=== PATIENT | female | born 1985 | race African-American/Black ===

== ENCOUNTER 2016-06-19 09:25 | Emergency (ER) | payer BC, MEDICAID ==
[2016-06-19] MEDS ORDERED: NAPROXEN 250 MG TABLET PO STA (12:03)
[2016-06-19] MEDS ORDERED: HYDROcod/ACETAM 5/325 MG TABLET PO STA (12:03)
[2016-06-19] MEDS ORDERED: NAPROXEN 250 MG TABLET PO ONE (12:08)
[2016-06-19] MEDS ORDERED: HYDROcod/ACETAM 5/325 MG TABLET ONE (12:08)
== END 2016-06-19 13:18 | disposition home or self-care (01) ==
DX: R07.89 Other chest pain (principal); R51 Headache; I10 Essential (primary) hypertension; F17.200 Nicotine dependence, unspecified, uncomplicated; Z79.3 Long term (current) use of hormonal contraceptives
CPT/HCPCS: 71020; 93005; 93010; 99282; 99284; A9270

== ENCOUNTER 2016-12-03 18:51 | Emergency (ER) | payer BC, MEDICAID ==
[2016-12-03] MEDS ORDERED: DEXAMETHASONE 10 MG/ML VIAL PO STA (20:48)
[2016-12-03] MEDS ORDERED: IPRATROPIUM/ALBUTEROL 3 ML NEB INH STA (20:48)
--- NOTE | 2016-12-03 20:54 | ED Physician Documentation ---
PD HPI DYSPNEA - Stated complaint Stated Complaint: SOA - Chief complaint Chief Complaint: Resp - History obtained from History obtained from: Patient, Family - History of Present Illness Timing - onset: How many days ago (3) Timing - onset during: Rest Timing - duration: Days (3) Timing - details: Gradual onset, Still present Inciting event(s): URI Improved by: Inhaler/neb Worsened by: Exertion, Coughing, Allergens Associated symptoms: Fever, Cough, Wheezing, Chest pain / discomfort Similar symptoms before: Diagnosis (asthma) Recently seen: Not recently seen - Additional information Additional information: 31-year-old female with history of asthma and hypertension has developed wheezing over the past 3 days. She has had a cough with a low-grade fever and is producing some sputum. She does not have headache sore throat or ear pain. She usually takes some labetalol for her blood pressure and she has not been on this for some time. She is noncompliant because she feels the medicine makes her feel tired. She has not followed up with her primary care doctor about alternative agents. She indicates that she does not have a primary care doctor now. She does have labetalol at home. Review of Systems Constitutional: reports: Fever Eyes: denies: Decreased vision Ears: denies: Ear pain Nose: reports: Congestion. denies: Rhinorrhea / runny nose Throat: denies: Sore throat Cardiac: reports: Chest pain / pressure. 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 - Present Medications Home Medications: Ambulatory Orders Medication Instructions Recorded Confirmed Albuterol Sulf [Ventolin Hfa 1 - 2 puffs INH Q4HR PRN #1 inhaler 12/03/16 Inhaler] Albuterol Sulfate [Proair Hfa 12/03/16 Inhaler] Azithromycin [Zithromax] 250 mg PO DAILY #6 tablet 12/03/16 - Allergies Allergies/Adverse Reactions: Allergies Allergy/AdvReac Type Severity Reaction Status Date / Time aspirin Allergy Severe Respiratory Verified 12/03/16 19:12 ibuprofen Allergy Severe Respiratory Verified 12/03/16 19:12 latex Allergy Intermediate Rash Verified 12/03/16 19:12 - Social History Does the pt smoke?: Yes Smoking Status: Current every day smoker Does the pt drink ETOH?: Yes Does the pt have substance abuse?: No - Immunizations Immunizations are current?: Yes - POLST Patient has POLST: No PD ED PE NORMAL - Vitals Vital signs reviewed: Yes (Hypertensive) - General General: Alert and oriented X 3, No acute distress, Well developed/nourished - HEENT HEENT: Atraumatic, PERRL, EOMI, Pharynx benign, Other (Minimal erythema along the umbo on the left side only.) - Neck Neck: Supple, no meningeal sign, No bony TTP - Cardiac Cardiac: RRR, No murmur - Respiratory Respiratory: No respiratory distress, Other (Wheezes and rhonchi scattered.) - Abdomen Abdomen: Soft, Non tender - Back Back: No CVA TTP, No spinal TTP - Derm Derm: Normal color, Warm and dry, No rash - Extremities Extremities: No deformity, No edema - Neuro Neuro: Alert and oriented X 3, No motor deficit, No sensory deficit, Normal speech - Psych Psych: Normal mood, Normal affect Results - Vitals Vitals: Vital Signs - 24 hr 12/03/16 12/03/16 12/03/16 18:57 19:15 20:55 Temperature 37.2 C 98.9 C H Heart Rate 90 87 84 Respiratory 22 18 18 Rate Blood Pressure 178/119 H 176/117 H O2 Saturation 98 93 12/03/16 22:02 Temperature Heart Rate 85 Respiratory 18 Rate Blood Pressure 165/102 H O2 Saturation 96 Oxygen O2 Source Nasal cannula - Rads (name of study) 2 view chest Radiology: Prelim report reviewed (Impression: Normal two-view chest radiography.), EMP read indepedently, See rad report Departure - Departure Disposition: 01 Home, Self Care Clinical Impression: Exacerbation of asthma Otitis media Qualifiers: Otitis media type: suppurative Chronicity: acute Laterality: left Recurrence: not specified as recurrent Spontaneous tympanic membrane rupture: without spontaneous rupture Qualified Code(s): H66.002 - Acute suppurative otitis media without spontaneous rupture of ear drum, left ear Hypertension Qualifiers: Hypertension type: essential hypertension Qualified Code(s): I10 - Essential ( primary) hypertension Condition: Stable Instructions: ED Otitis Media Acute Adult, ED Bronchitis Asthmatic, ED HTN Established Follow-Up: [facility] [Provider Group] [facility] [Provider Group] Prescriptions: Albuterol Sulf [Ventolin Hfa Inhaler] 1 - 2 puffs INH Q4HR PRN #1 inhaler PRN Reason: Shortness Of Air/Wheezing Azithromycin [Zithromax] 250 mg PO DAILY #6 tablet Comments: Today in the emergency department department your blood pressure was out of control. Take your medication as previously prescribed and follow-up with 1 of the providers suggested for continued care of your hypertension. An alternative agent may be more tolerable. Discharge Date/Time: 12/03/16 22:04
[2016-12-03] MEDS ORDERED: DEXAMETHASONE 10 MG/ML VIAL ONE (20:55)
[2016-12-03] MEDS ORDERED: IPRATROPIUM/ALBUTEROL 3 ML NEB INH ONE (20:59)
--- NOTE | 2016-12-03 21:23 | XRAY Preliminary Report ---
Exam: XR Chest 2 View PA/LAT IMPRESSION: Normal 2-view chest radiography. [facility] SITE ID: [id number]
--- NOTE | 2016-12-03 21:26 | XRAY Report ---
EXAM: CHEST RADIOGRAPHY EXAM DATE: 12/03/2016 09:19 PM. CLINICAL HISTORY: Nonproductive cough, chest tightness, and shortness of breath. COMPARISON: 06/19/2016 and 06/17/2014. TECHNIQUE: 2 views. FINDINGS: Lungs/Pleura: Normal volumes. No focal opacities are evident. No pleural effusion or pneumothorax. Mediastinum: Normal cardiomediastinal contour. Other: The bones are normal. IMPRESSION: Normal 2-view chest radiography. [facility] Referring Provider Line: [phone] SITE ID: [id number]
[2016-12-03 22:04] VITALS: BP 165/102
== END 2016-12-03 22:04 | disposition home or self-care (01) ==
LOC: ED 18:51
DX: J45.901 Unspecified asthma with (acute) exacerbation (principal); H66.002 Acute suppurative otitis media without spontaneous rupture of ear drum, left ear; I10 Essential (primary) hypertension; T44.8X6A Underdosing of centrally-acting and adrenergic-neuron-blocking agents, initial encounter; Z91.128 Patient's intentional underdosing of medication regimen for other reason; F17.200 Nicotine dependence, unspecified, uncomplicated
CPT/HCPCS: 71020; 94640; 94664; 99283; J7620

== ENCOUNTER 2016-12-29 15:34 | Outpatient (CLI) | payer MEDICAID ==
[2016-12-29 14:11] LABS: CALCIUM 8.8 mg/dL (8.5-10.3); CREATININE 0.7 mg/dL (0.4-1.0); POTASSIUM 3.8 mmol/L (3.5-5.0)
== END 2016-12-29 15:35 | disposition home or self-care (01) ==
LOC: LAB.N 15:34
PROVIDERS: ATTEND Family Medicine
DX: I10 Essential (primary) hypertension (principal)
CPT/HCPCS: 36415; 80048; 80053

== ENCOUNTER 2018-10-04 07:12 | Outpatient (CLI) | payer BC, MEDICAID ==
--- NOTE | 2018-10-04 09:55 | Ultrasound Report ---
Reason: ABD PAIN, WORSE IN RLQ W/PALPATION Procedure Date: 10/04/2018 Accession Number: [id number] / [id number] Procedure: US - Abdomen Complete CPT Code: FULL RESULT: EXAM: ABDOMEN ULTRASOUND EXAM DATE: 10/04/2018 07:39 AM. CLINICAL HISTORY: Abdominal pain, worse in RLQ with palpation. COMPARISON: ABDOMEN/PELVIS W/O 10/05/2015 2:16 AM. TECHNIQUE: Real-time scanning was performed with static images obtained. FINDINGS: Liver: Normal in size and echotexture. Liver measures at least 18.2 cm. Main portal vein flow: Hepatopetal. Gallbladder: Normal. No stones, wall thickening, or sonographic Jalloh's sign. Biliary System: Common bile duct measures 4 mm. No intrahepatic or extrahepatic ductal dilatation. Pancreas: Visualized portion is unremarkable. Kidneys: Right: 12 cm longitudinally. Normal. No contour-deforming mass, stones, or hydronephrosis. Left: 13.5 cm longitudinally. Mild amount of hydronephrosis. No renal calculi, lobulations noted, variant of normal. Spleen: 12.6 cm. Normal in size and echotexture. Aorta and Inferior Vena Cava: Unremarkable. Other: None. IMPRESSION: Mild left hydronephrosis, etiology not identified. [facility]
== END 2018-10-04 07:13 | disposition home or self-care (01) ==
LOC: DI 07:12
PROVIDERS: ATTEND Physician Assistant Medical
DX: N13.30 Unspecified hydronephrosis (principal)
CPT/HCPCS: 76700

== ENCOUNTER 2020-02-19 16:08 | Emergency (ER) | payer BC, OTHER ==
[2020-02-19 16:25] VITALS: BP 166/104
--- NOTE | 2020-02-19 17:04 | XRAY Report ---
PROCEDURE: Chest 1 View X-Ray INDICATIONS: chest pain TECHNIQUE: One view of the chest was acquired. COMPARISON: Chest 2 views 12/03/2016 reviewed. FINDINGS: Surgical changes and devices: None. Lungs and pleura: No pleural effusions or pneumothorax. Lungs are clear. Mediastinum: Mediastinal contours appear normal. Heart size is normal. Bones and chest wall: No suspicious bony lesions. Overlying soft tissues appear unremarkable. IMPRESSION: Normal for age, source of current symptoms is not seen. Reviewed by: Galdino Riddle MD on 02/19/2020 5:03 PM PST Approved by: Galdino Riddle MD on 02/19/2020 5:03 PM PST Station ID: [id number]
[2020-02-19] MEDS ORDERED: MAG HYDROX/AL HYDROX/SIMETH 30 ML UDC PO STA (17:06)
[2020-02-19] MEDS ORDERED: SUCRALFATE 1 GM/10 ML UDC PO STA (17:06)
[2020-02-19] MEDS ORDERED: LIDOCAINE VISCOUS 2% 15 ML UDC MM STA (17:06)
[2020-02-19 17:22] LABS: BASOPHILS % (AUTO) 0.3 %; EOSINOPHILS # (AUTO) 0.2 10^3/uL (0.0-0.7); EOSINOPHILS % (AUTO) 2.4 %; HGB - HEMOGLOBIN 10.1 g/dL (12.0-16.0); LYMPHOCYTES # (AUTO) 2.6 10^3/uL (1.5-3.5); LYMPHOCYTES % (AUTO) 29.7 %; MEAN CORPUSCULAR HEMOGLOBIN 21.4 pg (27.0-31.0); MEAN CORPUSCULAR HGB CONC 30.9 g/dL (32.0-36.0); MEAN CORPUSCULAR VOLUME 69.3 fL (81.0-99.0); MEAN PLATELET VOLUME 9.3 fL (7.9-10.8); MONOCYTES # (AUTO) 0.7 10^3/uL (0.0-1.0); MONOCYTES % (AUTO) 7.8 %; NEUTROPHILS # (AUTO) 5.1 10^3/uL (1.5-6.6); NEUTROPHILS % (AUTO) 59.3 %; PLT - PLATELET COUNT 307 10^3/uL (130-450); RED BLOOD COUNT 4.72 10^6/uL (4.20-5.40); RED CELL DISTRIBUTION WIDTH 16.6 % (12.0-15.0); WHITE BLOOD COUNT 8.6 x10^3/uL (4.8-10.8)
[2020-02-19 17:34] LABS: ALBUMIN 4.1 g/dL (3.2-5.5); ALBUMIN/GLOBULIN RATIO 1.3 (1.0-2.2); BILIRUBIN,TOTAL 0.8 mg/dL (0.2-1.0); CALCIUM 8.8 mg/dL (8.5-10.3); CREATININE 0.6 mg/dL (0.4-1.0); TOTAL PROTEIN 7.3 g/dL (6.7-8.2)
--- NOTE | 2020-02-19 17:36 | ED Physician Documentation ---
PD HPI CHEST PAIN - Stated complaint Stated Complaint: DIFFICULTY SWALLOWING, CHEST DISCOMFORT - Chief complaint Chief Complaint: General - History obtained from History obtained from: Patient - History of Present Illness Timing - onset: Today Timing - onset during: Rest Timing - duration: Days (1) Timing - details: Gradual onset Pain level max: 5 Pain level now: 4 Quality: Indigestion Location: Substernal Radiation: No: Jaw, Neck, Back, Abdominal, Left upper extremity, Right upper extremity Improved by: Nothing Worsened by: Eating Associated symptoms: No: Shortness of air, Diaphoresis, Nausea, Vomiting, Feeling faint / dizzy, General Weakness, Palpitations, Cough - Additional information Additional information: 34-year-old female presents to the emergency department with chest pain today. She describes it as burning. It is substernal, nonradiating. Worse with eating and drinking. Nothing makes it better. Has not taken anything for this. Has not had similar complaints previously. Patient denies any possibility of . Review of Systems Ten Systems: 10 systems reviewed and negative Constitutional: denies: Fever, Chills Nose: denies: Rhinorrhea / runny nose, Congestion Throat: denies: Sore throat Cardiac: denies: Palpitations, Calf pain Respiratory: denies: Cough GI: reports: Abdominal Pain (Epigastric abdominal pain.). 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 02/19/20 Hydrochlorothiazide 0 mg DAILY 02/19/20 02/19/20 Labetalol [Trandate] 0 mg BID 02/19/20 02/19/20 Sucralfate [Carafate] 1 gm PO ACHS #60 tablet 02/19/20 - Allergies Allergies/Adverse Reactions: Allergies Allergy/AdvReac Type Severity Reaction Status Date / Time aspirin Allergy Severe Respiratory Verified 12/03/16 19:12 ibuprofen Allergy Severe Respiratory Verified 12/03/16 19:12 latex Allergy Intermediate Rash Verified 12/03/16 19:12 - Social History Does the pt smoke?: Yes Smoking Status: Current every day smoker Does the pt drink ETOH?: Yes Does the pt have substance abuse?: No - Immunizations Immunizations are current?: Yes - POLST Patient has POLST: No PD ED PE NORMAL - Vitals Vital signs reviewed: Yes - General General: Alert and oriented X 3, No acute distress - HEENT HEENT: Moist mucous membranes - Neck Neck: Supple, no meningeal sign - Cardiac Cardiac: RRR, No murmur, Strong equal pulses - Respiratory Respiratory: No respiratory distress, Clear bilaterally - Abdomen Abdomen: Soft, Non tender, Non distended - Back Back: No CVA TTP, No spinal TTP - Derm Derm: Warm and dry - Extremities Extremities: No edema - Neuro Neuro: Alert and oriented X 3 - Psych Psych: Normal mood, Normal affect Results - Vitals Vitals: Vital Signs - 24 hr 02/19/20 16:20 Temperature 36.7 C Heart Rate 87 Respiratory 16 Rate Blood Pressure 166/104 H O2 Saturation 100 Oxygen O2 Source Room air - EKG (time done) 1635 Rate: Rate (enter#) (79) Rhythm: NSR [place]: Normal Intervals: Normal VT QRS: Normal Ischemia: Normal ST segments - Labs Labs: Laboratory Tests 02/19/20 02/19/20 02/19/20 17:13 17:13 17:13 WBC 8.6 RBC 4.72 Hgb 10.1 L Hct 32.7 L MCV 69.3 L MCH 21.4 L MCHC 30.9 L RDW 16.6 H Plt Count 307 MPV 9.3 Neut # (Auto) 5.1 Lymph # (Auto) 2.6 [place] # (Auto) 0.7 Eos # (Auto) 0.2 Baso # (Auto) 0.0 Absolute Nucleated RBC 0.00 Nucleated RBC % 0.0 WBC Morphology NORMAL APPEARANCE Platelet Estimate NORMAL (130-450,000) Platelet Morphology NORMAL APPEARANCE RBC Morph Micro Appear 1+ HYPOCHROMASIA Sodium 137 Potassium 3.7 Chloride 103 Carbon Dioxide 26 Anion Gap 8.0 BUN 8 Creatinine 0.6 Estimated GFR (MDRD) 137 Glucose 86 Calcium 8.8 Total Bilirubin 0.8 AST 16 ALT 18 Alkaline Phosphatase 32 L Troponin I High Sens < 2.3 L Total Protein 7.3 Albumin 4.1 Globulin 3.2 Albumin/Globulin Ratio 1.3 Lipase 25 - Rads (name of study) Chest x-ray Radiology: Prelim report reviewed, EMP read contemporaneously, See rad report (No acute abnormality) PD MEDICAL DECISION MAKING - ED course Complexity details: reviewed results, re-evaluated patient, considered differential (No ST elevation [place], no aortic dissection, no PE, no tension pneumothorax, no aortic aneurysm), d/w patient ED course: 34-year-old female presents to the emergency department with chest pain today. Appears consistent with GERD. Symptoms resolved with GI cocktail. Negative troponin. No acute findings on EKG, chest x-ray. Patient is well-appearing, nontoxic. Afebrile. No evidence of PE. Patient counseled regarding signs and symptoms for which I believe and urgent re-evaluation would be necessary. Patient with good understanding of and agreement to plan and is comfortable going home at this time This document was made in part using voice recognition software. While efforts are made to proofread this document, sound alike and grammatical errors may occur. Departure - Departure Disposition: Home, Self Care Clinical Impression: Chest pain Qualifiers: Chest pain type: unspecified Qualified Code(s): R07.9 - Chest pain, unspecified GERD (gastroesophageal reflux disease) Qualifiers: Esophagitis presence: with esophagitis Esophagitis bleeding: without hemorrhage Qualified Code(s): K21.00 - Gastro-esophageal reflux disease with esophagitis, without bleeding Condition: Good Instructions: ED Chest Pain Atypical Unkn Cause, ED GERD Follow-Up: your,doctor in 1 week [Other] Prescriptions: Sucralfate [Carafate] 1 gm PO ACHS #60 tablet Esomeprazole Magnesium [Nexium] 20 mg PO DAILY #30 capsule. Comments: Follow-up with your doctor for further care. They may want to schedule you for an endoscopy to have a visual inspection of your esophagus and stomach. Use the medications as prescribed. Avoid fried foods, spicy foods, caffeine. Discharge Date/Time: 02/19/20 18:13
[2020-02-19 18:33] LABS: PLATELET ESTIMATE, MANUAL NORMAL (130-450,000) (NORMAL); PLATELET MORPHOLOGY NORMAL APPEARANCE (NORMAL)
== END 2020-02-19 18:13 | disposition home or self-care (01) ==
LOC: ED 16:08
DX: K21.00 Gastro-esophageal reflux disease with esophagitis, without bleeding (principal); R07.9 Chest pain, unspecified; F17.200 Nicotine dependence, unspecified, uncomplicated; I10 Essential (primary) hypertension
CPT/HCPCS: 71045; 80053; 83690; 84484; 85025; 93005; 99284; 99285; A9270; 36415

== ENCOUNTER 2020-09-11 06:52 | Emergency (ER) | payer OTHER, MEDICAID ==
[2020-09-11 07:04] VITALS: BP 149/94
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
== END 2020-09-11 08:52 | disposition home or self-care (01) ==
LOC: ED 06:52
DX: S39.012A Strain of muscle, fascia and tendon of lower back, initial encounter (principal); V49.9XXA Car occupant (driver) (passenger) injured in unspecified traffic accident, initial encounter; F17.200 Nicotine dependence, unspecified, uncomplicated; I10 Essential (primary) hypertension
CPT/HCPCS: 99283; 99284

== ENCOUNTER 2020-09-12 02:34 | Emergency (ER) | payer OTHER, MEDICAID ==
[2020-09-12 03:16] LABS: BASOPHILS % (AUTO) 0.3 %; EOSINOPHILS # (AUTO) 0.2 10^3/uL (0.0-0.7); EOSINOPHILS % (AUTO) 2.5 %; HCT - HEMATOCRIT 37.5 % (37.0-47.0); HGB - HEMOGLOBIN 11.4 g/dL (12.0-16.0); LYMPHOCYTES # (AUTO) 1.8 10^3/uL (1.5-3.5); LYMPHOCYTES % (AUTO) 19.5 %; MEAN CORPUSCULAR HEMOGLOBIN 21.9 pg (27.0-31.0); MEAN CORPUSCULAR HGB CONC 30.4 g/dL (32.0-36.0); MEAN PLATELET VOLUME 10.1 fL (7.9-10.8); MONOCYTES # (AUTO) 0.9 10^3/uL (0.0-1.0); MONOCYTES % (AUTO) 9.3 %; NEUTROPHILS # (AUTO) 6.3 10^3/uL (1.5-6.6); PLT - PLATELET COUNT 315 10^3/uL (130-450); RED BLOOD COUNT 5.21 10^6/uL (4.20-5.40); RED CELL DISTRIBUTION WIDTH 19.9 % (12.0-15.0); WHITE BLOOD COUNT 9.3 x10^3/uL (4.8-10.8)
--- NOTE | 2020-09-12 03:18 | ED Physician Documentation ---
PD HPI BACK PAIN - Stated complaint Stated Complaint: ABD PX - Chief complaint Chief Complaint: Back Pain - History obtained from History obtained from: Patient - History of Present Illness Timing - onset: How many days ago (2-3 days of left low back pain. Seen yesterday with imaging of spine without acute process. Sthritis noted. Now having pain into left side abd with feeling of fulness.) Timing - duration: Days (2-3) Timing - details: Gradual onset, Still present, Waxing and waning Location: Lower, Left Quality: Pain, Aching Associated symptoms: Other (nausea). No: Fever, Weakness, Numbness Worsened by: Movement Contributing factors: No: Lifting, Twisting Recently seen: Emergency Dept (yesterday in ER and Dx with muscular back pain. Had imiaging of spine with some arthritis Dx.) Review of Systems Constitutional: denies: Fever, Chills Nose: denies: Rhinorrhea / runny nose, Congestion Throat: denies: Sore throat Cardiac: denies: Chest pain / pressure Respiratory: denies: Dyspnea, Cough GI: reports: Abdominal Pain, Nausea, Constipation. 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 02/19/20 09/12/20 Labetalol [Trandate] 0 mg BID 02/19/20 09/12/20 Sucralfate [Carafate] 1 gm PO ACHS #60 tablet 02/19/20 09/12/20 hydroCHLOROthiazide 0 mg DAILY 02/19/20 09/12/20 [Hydrochlorothiazide] HYDROcod/ACETAM 5/325 [[place] 5/325] 1 - 2 ea PO Q6H PRN #14 tablet 09/11/20 09/12/20 methocarbamoL [Robaxin] 500 mg PO Q6H PRN #20 tablet 09/11/20 09/12/20 Naproxen Sodium [Naprelan] 375 mg PO BID PRN #20 tab 09/12/20 Sennosides/Docusate Sodium 1 each PO DAILY 30 Days #30 tablet 09/12/20 [Senna-Docusate Sodium Tablet] polyethylene glycoL 3350 [Miralax] 17 gm PO DAILY PRN #1 bottle 09/12/20 - Allergies Allergies/Adverse Reactions: Allergies Allergy/AdvReac Type Severity Reaction Status Date / Time aspirin Allergy Severe Respiratory Verified 09/12/20 02:42 ibuprofen Allergy Severe Respiratory Verified 09/12/20 02:42 latex Allergy Intermediate Rash Verified 09/12/20 02:42 - Social History Does the pt smoke?: Yes Smoking Status: Current every day smoker Does the pt drink ETOH?: Yes Does the pt have substance abuse?: No - Immunizations Immunizations are current?: Yes - POLST Patient has POLST: No PD ED PE NORMAL - Vitals Vital signs reviewed: Yes - General General: Alert and oriented X 3, Well developed/nourished, Other (appears in pain and is somewhat anxious as well. ) - HEENT HEENT: Moist mucous membranes, Pharynx benign - Neck Neck: Supple, no meningeal sign, No adenopathy - Cardiac Cardiac: RRR, No murmur - Respiratory Respiratory: Clear bilaterally - Abdomen Abdomen: Normal bowel sounds, Soft, No organomegaly, Other (some firmness left mid to lower abd with local tenderness. No percussion nor rebound tenderness. ) - Female Female : Deferred - Rectal Rectal: Deferred - Back Back: No CVA TTP, No spinal TTP (but is tender left mid paralumbar muscles. No rash nor sores. Not tender to light touch. ) - Derm Derm: Normal color, Warm and dry - Extremities Extremities: Normal ROM s pain, No edema, No calf tenderness / cord - Neuro Neuro: Alert and oriented X 3, No motor deficit, No sensory deficit, Normal speech - Psych Psych: Normal mood. No: Normal affect (anxious) Results - Vitals Vitals: Oxygen O2 Source Room air - Labs Labs: Laboratory Tests 09/12/20 09/12/20 09/12/20 03:06 03:06 03:06 WBC 9.3 RBC 5.21 Hgb 11.4 L Hct 37.5 MCV 72.0 L MCH 21.9 L MCHC 30.4 L RDW 19.9 H Plt Count 315 MPV 10.1 Neut # (Auto) 6.3 Lymph # (Auto) 1.8 [place] # (Auto) 0.9 Eos # (Auto) 0.2 Baso # (Auto) 0.0 Absolute Nucleated RBC 0.00 Nucleated RBC % 0.0 Sodium 139 Potassium 3.9 Chloride 103 Carbon Dioxide 28 Anion Gap 8.0 BUN 8 Creatinine 0.7 Estimated GFR (MDRD) 114 Glucose 105 H Calcium 8.9 Total Bilirubin 0.8 AST 18 ALT 21 Alkaline Phosphatase 35 L Total Protein 7.5 Albumin 4.3 Globulin 3.2 Albumin/Globulin Ratio 1.3 Lipase 21 L Urine Color YELLOW Urine Clarity CLEAR Urine pH 5.5 Ur Specific [place] 1.020 Urine Protein NEGATIVE Urine Glucose (UA) NEGATIVE Urine Ketones NEGATIVE Urine Occult Blood MODERATE H Urine Nitrite NEGATIVE Urine Bilirubin NEGATIVE Urine Urobilinogen 0.2 (NORMAL) Ur Leukocyte Esterase NEGATIVE Urine RBC 6-10 H Urine WBC 0-3 Ur Squamous Epith Cells MOD Squamous H Urine Bacteria Few Ur Microscopic Review INDICATED Urine Culture Comments NOT INDICATED Urine HCG, Qual NEGATIVE - Rads (name of study) abd/pelvic CT Radiology: Prelim report reviewed (large amount fecal material colon), See rad report PD MEDICAL DECISION MAKING - ED course Complexity details: reviewed results (large amount fecal material colon. No acute process otherwise. ), re-evaluated patient (improved with meds here. ), considered differential (pain was low back and now with left abd pain as well. Consider renal stone/infection, descending colon issue, diverticulitis, etc. ), d/w patient Departure - Departure Disposition: 01 Home, Self Care Clinical Impression: Left sided abdominal pain Back pain Qualifiers: Back pain location: low back pain Chronicity: unspecified Back pain laterality: left Sciatica presence: without sciatica Qualified Code(s): M54.5 - Low back pain Condition: Stable Record reviewed to determine appropriate education?: Yes Instructions: ED Abdominal Pain Unkn Cause, ED Low Back Pain Injury Prescriptions: polyethylene glycoL 3350 [Miralax] 17 gm PO DAILY PRN #1 bottle PRN Reason: Constipation Naproxen Sodium [Naprelan] 375 mg PO BID PRN #20 tab PRN Reason: Pain Sennosides/Docusate Sodium [Senna-Docusate Sodium Tablet] 1 each PO DAILY 30 Days #30 tablet Comments: Your CT scan did not show any acute organ process. There was moderate amount of stool retention noted in the left abdomen. This may be accounting for some of the abdominal pain now in addition to your back pain. Use stool softeners of MiraLAX and docusate. Also add senna mild laxative to help with this. For your back pain, continue the muscle relaxants and pain medicine. Add naproxen anti-inflammatory twice daily with food. Follow-up with your primary care if not improved well over the next several days to week. Discharge Date/Time: 09/12/20 06:12
[2020-09-12 03:22] LABS: BILIRUBIN,URINE NEGATIVE (NEGATIVE); GLUCOSE, URINE (UA) NEGATIVE (NEGATIVE); KETONES,URINE (UA) NEGATIVE (NEGATIVE); LEUKOCYTE ESTERASE, URINE NEGATIVE (NEGATIVE); NITRITE,URINE NEGATIVE (NEGATIVE); OCCULT BLOOD,URINE MODERATE (NEGATIVE); PH,URINE 5.5 PH (5.0-7.5); PROTEIN,URINE NEGATIVE (NEGATIVE); UROBILINOGEN,URINE 0.2 (NORMAL) E.U./dL (NORMAL)
[2020-09-12 03:24] LABS: CLARITY,URINE CLEAR (CLEAR); HCG UR QUAL NEGATIVE
[2020-09-12 03:30] LABS: ALBUMIN 4.3 g/dL (3.2-5.5); ALBUMIN/GLOBULIN RATIO 1.3 (1.0-2.2); BACTERIA,URINE Few /HPF (None Seen); BILIRUBIN,TOTAL 0.8 mg/dL (0.2-1.0); CALCIUM 8.9 mg/dL (8.5-10.3); CREATININE 0.7 mg/dL (0.4-1.0); POTASSIUM 3.9 mmol/L (3.5-5.0); SQUAMOUS EPITHELIAL CELL,UR MOD Squamous (<= Few); TOTAL PROTEIN 7.5 g/dL (6.7-8.2); WBC,URINE 0-3 /HPF (0-5)
[2020-09-12] MEDS ORDERED: SODIUM CHLORIDE 0.9% 1,000 ML IV STA (03:53)
[2020-09-12] MEDS ORDERED: DOCUSATE SODIUM 100 MG CAPSULE PO STA (03:53)
[2020-09-12] MEDS ORDERED: HYDROmorphone 1 MG/ML CARPUJECT IVP STA (03:53)
[2020-09-12] MEDS ORDERED: IOVERSOL 320 100 ML VIAL IVP ONE ×2 (04:08→04:45)
[2020-09-12] MEDS ORDERED: KETOROLAC 30 MG/ML VIAL IVP STA (06:00)
[2020-09-12 06:09] VITALS: BP 150/88
--- NOTE | 2020-09-12 07:56 | CT Report ---
PROCEDURE: Abdomen/Pelvis W INDICATIONS: left abd/flank pain CONTRAST: IV CONTRAST: Optiray 320 ml: 100 PO CONTRAST: *NO PO CONTRAST TECHNIQUE: After the administration of intravenous contrast, 5 mm thick sections acquired from the diaphragms to the symphysis. 5 mm thick coronal and sagittal reformats were acquired. For radiation dose reducti on, the following was used: automated exposure control, adjustment of mA and/or kV according to ankita ent size. COMPARISON: 10/05/2015 FINDINGS: Image quality: Excellent. ABDOMEN: Lung bases: Trace right pleural effusion and minimal right basilar atelectasis. Heart size is normal. Solid organs: Liver and spleen are normal in size and enhancement. Gallbladder is unremarkable. Bi liary system is non dilated. Pancreas enhances normally. No adrenal nodules. Kidneys demonstrate n ormal size and enhancement, without hydronephrosis. Peritoneum and bowel: Large amount of fecal debris in the cecum and ascending colon and transverse co antonia. No abnormally dilated loops of bowel or bowel wall thickening. No free fluid or air. Nodes and vessels: No retroperitoneal or mesenteric adenopathy by size criteria. Aorta and inferior vena cava are normal in size. Miscellaneous: No ventral hernias. PELVIS: Genitourinary: Bladder wall thickness is normal. Miscellaneous: No inguinal hernias or adenopathy. Bones: No suspicious bony lesions. No vertebral body compression fractures. IMPRESSION: 1. Trace right pleural effusion and minimal associated right basilar atelectasis. 2. Large amount of fecal debris in the right colon and transverse colon. 3. No other significant findings. A preliminary report with the above findings was provided at the time of the study by [facility]. Reviewed by: Prem Estevez MD on 09/12/2020 6:54 AM AMANDA Approved by: Prem Estevez MD on 09/12/2020 6:54 AM AMANDA Station ID: [id number]
== END 2020-09-12 06:12 | disposition home or self-care (01) ==
LOC: ED 02:34
DX: M54.5 Low back pain (principal); R10.9 Unspecified abdominal pain; I10 Essential (primary) hypertension; F17.200 Nicotine dependence, unspecified, uncomplicated
CPT/HCPCS: 36415; 74177; 80053; 81001; 81025; 83690; 85025; 96361; 96374; 96375; 99284; A9270; J1170; Q9967; 81003; 87086